=== PATIENT | female | born 1960 | race Caucasian/White ===

== ENCOUNTER 2019-09-19 07:30 | Inpatient (IN) | payer BC ==
[~2019-09-19] VITALS: Ht 175.3 cm; Wt 82.3 kg
[2019-09-28] MEDS ORDERED: PLAN450T PO (13:58)
[2019-09-28] MEDS ORDERED: berberine PO (13:58)
[2019-09-28] MEDS ORDERED: COCO1000 PO (13:58)
[2019-10-03] MEDS ORDERED: VANCOMYCIN 1,000 MG ONE (06:56)
[2019-10-03] MEDS ORDERED: LIDOCAINE 1%-EPI 1:100K, 20ML ONE (06:57)
[2019-10-03] MEDS ORDERED: BUPIVACAINE/PF-EPI 0.5% 1:200K ONE (06:57)
[2019-10-03] MEDS ORDERED: BACITRACIN 50,000 UNIT ONE (06:57)
[2019-10-03] MEDS ORDERED: MAGNESIUM SULFATE 1 GM/2 ML ONE (07:29)
[2019-10-03] MEDS ORDERED: LIDOCAINE 1%, 20ML ONE (07:29)
[2019-10-03] MEDS ORDERED: LABETALOL 5MG/ML, 20ML ONE ×2 (07:29→08:46)
[2019-10-03] MEDS ORDERED: LABETALOL 5MG/ML, 20ML IV PRN ×2 (07:30→15:30)
[2019-10-03] MEDS ORDERED: FENTANYL PF 100 MCG/2ML IV PRN (07:30)
[2019-10-03] MEDS ORDERED: METOCLOPRAMIDE 5 MG/ML, 2ML IVPush PRN (07:30)
[2019-10-03] MEDS ORDERED: EPHEDRINE 50 MG/ML, 1ML IM PRN (07:30)
[2019-10-03] MEDS ORDERED: DIAZEPAM 5 MG/ML, 2ML IVPush PRN (07:30)
[2019-10-03] MEDS ORDERED: HALOPERIDOL 5 MG/ML IV PRN (07:30)
[2019-10-03] MEDS ORDERED: MIDAZOLAM 1 MG/ML, 2ML IV PRN (07:30)
[2019-10-03] MEDS ORDERED: ALBUTEROL/IPRATROPIUM 2.5MG/0.5MG, 3 ML NPPB PRN (07:30)
[2019-10-03] MEDS ORDERED: OXYcodone 5 MG/5 ML ORAL.SOL UDC PO PRN (07:30)
[2019-10-03] MEDS ORDERED: EPHEDRINE 50 MG/ML, 1ML IVPush PRN (07:30)
[2019-10-03] MEDS ORDERED: HYDROmorphone 1 MG/ML, 1ML INJ IVPush PRN (07:30)
[2019-10-03] MEDS ORDERED: DIPHENHYDRAMINE 50 MG/ML, 1ML IVPush PRN (07:30)
[2019-10-03] MEDS ORDERED: MEPERIDINE/PF 25MG/0.5ML IVPush PRN (07:30)
[2019-10-03] MEDS ORDERED: LORazepam 2 MG/ML, 1ML IVPush PRN (07:30)
[2019-10-03] MEDS ORDERED: ACETAMINOPHEN 325 MG TABLET PO PRN (07:30)
[2019-10-03] MEDS ORDERED: KETOROLAC 30 MG/1 ML IVPush PRN (07:30)
[2019-10-03] MEDS ORDERED: HYDROcodone/APAP 7.5-325MG/15ML UDC PO PRN (07:30)
[2019-10-03] MEDS ORDERED: ONDANSETRON 2MG/ML, 2ML IVPush PRN (07:30)
[2019-10-03] MEDS ORDERED: LACTATED RINGERS 1,000 ML IV SCH (07:43)
[2019-10-03] MEDS ORDERED: CHLORHEXIDINE 15 ML UDC ONE (07:49)
[2019-10-03] MEDS ORDERED: MIDAZOLAM 1 MG/ML, 5ML ONE (07:50)
[2019-10-03] MEDS ORDERED: CEFAZOLIN 1,000 MG ONE (07:50)
[2019-10-03] MEDS ORDERED: FENTANYL PF 250 MCG/5ML ONE (07:50)
[2019-10-03] MEDS ORDERED: PROPOFOL 10 MG/ML, 20ML ONE (07:53)
[2019-10-03] MEDS ORDERED: ROCURONIUM 10MG/ML,5ML ONE (07:53)
[2019-10-03] MEDS ORDERED: DEXAMETHASONE 4 MG/ML, 1ML ONE (07:53)
[2019-10-03] MEDS ORDERED: GLYCOPYRROLATE 0.2MG/1ML, 5ML ONE (07:53)
[2019-10-03] MEDS ORDERED: LIDOCAINE-MPF 2% ,5ML ONE (07:53)
[2019-10-03] MEDS ORDERED: CHLORHEXIDINE 15 ML UDC MM ONE (08:00)
[2019-10-03] MEDS ORDERED: GENTAMICIN 80 MG/2 ML ONE (08:27)
[2019-10-03] MEDS ORDERED: PHENYLEPHRINE 10 MG/ML ONE (08:46)
[2019-10-03] MEDS ORDERED: morphine SULFATE/PF 1 MG/ML, 10ML ONE ×2 (11:29→12:32)
[2019-10-03] MEDS ORDERED: FENTANYL PF 100 MCG/2ML ONE ×2 (12:12→12:33)
[2019-10-03] MEDS ORDERED: HYDROcodone/APAP 7.5-325MG/15ML UDC ONE (14:40)
[2019-10-03] MEDS ORDERED: ONDANSETRON 2MG/ML, 2ML IV PRN (15:30)
[2019-10-03] MEDS ORDERED: DIAZEPAM 5 MG/ML, 2ML IV PRN (15:30)
[2019-10-03] MEDS ORDERED: DIAZEPAM 5 MG TABLET PO PRN (15:30)
[2019-10-03] MEDS: CEFAZOLIN PMX 1GM/50ML 50 ML IVPB SCH (16:23)
[2019-10-03] MEDS: GABAPENTIN 300 MG CAPSULE PO SCH ×2 (16:23→21:06)
[2019-10-03] MEDS: D5%-0.9% NACL+KCL 20MEQ 1,000 ML IV SCH (16:23)
[2019-10-03 19:06] VITALS: BP 117/78
[2019-10-03] MEDS: DIPHENHYDRAMINE 50 MG/ML, 1ML IVPush PRN (21:06)
[2019-10-03 23:42] VITALS: BP 96/53
[2019-10-04] MEDS: D5%-0.9% NACL+KCL 20MEQ 1,000 ML IV SCH ×3 (00:22→17:15)
[2019-10-04] MEDS: CEFAZOLIN PMX 1GM/50ML 50 ML IVPB SCH ×3 (00:28→16:34)
[2019-10-04 04:05] VITALS: BP 99/59
[2019-10-04] MEDS: DIPHENHYDRAMINE 50 MG/ML, 1ML IVPush PRN (06:28)
[2019-10-04 07:38] VITALS: BP 112/65
[2019-10-04] MEDS: SENNA/DOCUSATE TABLET PO SCH (08:29)
[2019-10-04] MEDS: FAMOTIDINE 20 MG TABLET PO SCH (08:29)
[2019-10-04] MEDS: GABAPENTIN 300 MG CAPSULE PO SCH ×3 (08:29→21:36)
[2019-10-04] MEDS: OXYcodone IR 5MG TABLET PO PRN ×4 (08:29→21:39)
[2019-10-04 14:32] VITALS: BP 92/50
[2019-10-04 19:10] VITALS: BP 96/61
[2019-10-05 00:42] VITALS: BP 127/65
[2019-10-05] MEDS: CEFAZOLIN PMX 1GM/50ML 50 ML IVPB SCH ×2 (01:50→09:03)
[2019-10-05] MEDS: D5%-0.9% NACL+KCL 20MEQ 1,000 ML IV SCH ×3 (01:51→23:30)
[2019-10-05] MEDS: OXYcodone IR 5MG TABLET PO PRN ×6 (01:51→21:43)
[2019-10-05 06:50] VITALS: BP 124/67
[2019-10-05] MEDS: GABAPENTIN 300 MG CAPSULE PO SCH ×3 (09:02→21:39)
[2019-10-05] MEDS: FAMOTIDINE 20 MG TABLET PO SCH (09:03)
[2019-10-05] MEDS: SENNA/DOCUSATE TABLET PO SCH (09:03)
[2019-10-05 13:12] VITALS: BP 141/64
[2019-10-05 13:34] VITALS: BP 90/56
[2019-10-05 18:29] VITALS: BP 95/60
[2019-10-06 00:15] VITALS: BP 99/65
[2019-10-06] MEDS: OXYcodone IR 5MG TABLET PO PRN ×5 (02:54→18:24)
[2019-10-06] MEDS: D5%-0.9% NACL+KCL 20MEQ 1,000 ML IV SCH ×2 (07:30→15:30)
[2019-10-06 07:33] VITALS: BP 95/53
[2019-10-06] MEDS: FAMOTIDINE 20 MG TABLET PO SCH (08:11)
[2019-10-06] MEDS: GABAPENTIN 300 MG CAPSULE PO SCH ×2 (08:12→17:11)
[2019-10-06] MEDS: SENNA/DOCUSATE TABLET PO SCH (08:14)
[2019-10-06 12:57] VITALS: BP 87/51
[2019-10-06] MEDS ORDERED: OXYC5CAP2 PO (17:28)
== END 2019-10-06 19:25 | disposition home or self-care (01) | DRG 460 ==
LOC: ORIP 10-03 06:56 → 4NE 10-03 15:12
PROVIDERS: ADMIT Orthopaedic Surgery Orthopaedic Surgery of the Spine; ATTEND Orthopaedic Surgery Orthopaedic Surgery of the Spine
PROC: 01NB0ZZ Release Lumbar Nerve, Open Approach (ICD-10-PCS; 2019-10-03)
PROC: 01NR0ZZ Release Sacral Nerve, Open Approach (ICD-10-PCS; 2019-10-03)
PROC: 0QB30ZZ Excision of Left Pelvic Bone, Open Approach (ICD-10-PCS; 2019-10-03)
PROC: 4A11X4G Monitoring of Peripheral Nervous Electrical Activity, Intraoperative, External Approach (ICD-10-PCS; 2019-10-03)
PROC: 0SG3071 Fusion of Lumbosacral Joint with Autologous Tissue Substitute, Posterior Approach, Posterior Column, Open Approach (ICD-10-PCS; principal; 2019-10-03 09:00)
DX: M48.062 Spinal stenosis, lumbar region with neurogenic claudication (principal); M43.17 Spondylolisthesis, lumbosacral region; M41.86 Other forms of scoliosis, lumbar region; Z20.828 Contact with and (suspected) exposure to other viral communicable diseases
CPT/HCPCS: 36415; 72100; J3490; 85014; 85018; 86850; 86900; 87635; 95938; 95941; C1713; G0378; J0690; J1100; J2250; J2270; J2274; J2704; J3010; J3370; J3475; C1751; C1762; J1200; J1580; J2370; J3480; J7120